=== PATIENT | female | born 1975 | race Caucasian/White ===

== ENCOUNTER 2019-07-25 19:15 | Emergency (ER) | payer BC ==
[~2019-07-25] VITALS: Ht 172.7 cm; Wt 77.1 kg
[~2019-07-25 19:15] MED LIST: ACETAMINOPHEN-1 EAC1 PO; BIRTH CONTROL; IBUPROFEN 600600 M1 PO; IBUPROFEN 800800 MG PO; LOESTRIN1 EAC1 PO; MAXALT5 MG PO; NORCO 5-325 TA1 EACH PO; ONDANSETRON HCL4 M2 PO; PERCOCET 5-3251 EACH PO; TREXIMET 85-501 EACH PO; VICODIN; VICODIN 5-3001 EACH PO; ZOFRAN ODT4 MG PO; ZOFRAN4 MG PO
[2019-07-25] MEDS ORDERED: MAXALT10 MG PO (19:26)
[2019-07-25] MEDS ORDERED: NORCO 5-325 TA1 EAC1 PO (19:27)
[2019-07-25 20:15] LABS: INFLUENZA A ANTIGEN Negative (Negative); INFLUENZA B ANTIGEN Negative (Negative)
[2019-07-25 21:40] VITALS: BP 140/78
== END 2019-07-25 21:41 | disposition home or self-care (01) ==
LOC: M.ERS 19:15
PROVIDERS: Emergency Medicine
DX: J06.9 Acute upper respiratory infection, unspecified (principal); G43.909 Migraine, unspecified, not intractable, without status migrainosus; Z90.49 Acquired absence of other specified parts of digestive tract; Z88.8 Allergy status to other drugs, medicaments and biological substances

== ENCOUNTER 2020-05-22 06:40 | Emergency (ER) | payer BC ==
[~2020-05-22] VITALS: Ht 172.7 cm; Wt 76.2 kg
[~2020-05-22 06:40] MED LIST changes: +MAXALT10 MG PO; +NORCO 5-325 TA1 EAC1 PO
[2020-05-22 08:08] LABS: INFLUENZA A ANTIGEN Negative (Negative); INFLUENZA B ANTIGEN Negative (Negative)
[2020-05-22] MEDS ORDERED: FLEXERIL PO (08:17)
[2020-05-22 08:35] VITALS: BP 127/68
== END 2020-05-22 08:35 | disposition home or self-care (01) ==
LOC: M.ERS 06:40
PROVIDERS: Emergency Medicine Emergency Medical Services
DX: B34.9 Viral infection, unspecified (principal); Z20.828 Contact with and (suspected) exposure to other viral communicable diseases; G43.909 Migraine, unspecified, not intractable, without status migrainosus; Z88.8 Allergy status to other drugs, medicaments and biological substances; Z90.49 Acquired absence of other specified parts of digestive tract

== ENCOUNTER 2021-02-12 20:13 | Emergency (ER) | payer BC ==
[~2021-02-12] VITALS: Ht 172.7 cm; Wt 81.7 kg
[~2021-02-12 20:13] MED LIST changes: +FLEXERIL PO
[2021-02-12 20:40] LABS: URINE BILIRUBIN NEGATIVE (Negative); URINE BLOOD NEGATIVE (Negative); URINE CLARITY CLEAR; URINE COLOR YELLOW; URINE GLUCOSE-RANDOM NEGATIVE (Negative); URINE KETONES NEGATIVE (Negative); URINE LEUKOCYTES-REFLEX NEGATIVE (Negative); URINE NITRITE-REFLEX NEGATIVE (Negative); URINE PROTEIN NEGATIVE (Negative); URINE SPECIFIC GRAVITY 1.015 (1.005-1.030); URINE UROBILINOGEN 0.2 E.U./dl (0.2-1.0)
[2021-02-13] MEDS ORDERED: NORCO5 PO (00:06)
[2021-02-13 00:15] VITALS: BP 115/58
== END 2021-02-13 00:15 | disposition home or self-care (01) ==
LOC: M.ERS 20:13
PROVIDERS: Emergency Medicine
DX: R10.31 Right lower quadrant pain (principal); G43.909 Migraine, unspecified, not intractable, without status migrainosus; Z79.899 Other long term (current) drug therapy